=== PATIENT | female | born 1940 | race Caucasian/White ===

== ENCOUNTER → 2018-12-09 | Outpatient (CLI) | payer OTHER, BC ==
[~2018-12-09] VITALS: Ht 165.1 cm; Wt 70.3 kg
[~2018-12-09] MED LIST: AMLOD-VALSA-HC1 EACH PO; CLONAZEPAM 0.50.5 M1 PO; CYMBALTA30 MG PO; DEXILANT60 MG PO; LIPITOR10 MG PO; MOBIC15 MG PO; NEURONTIN 400400 M1 PO; REMERON15 MG PO
--- NOTE | ~2018-12-09 | P ---
[facility] [place] [address] PROCEDURE REPORT Name: JULIÁN BEATTY Room #: REG [facility]#: [id number] Admission: 12/09/18 ������������������ Attend Phys: Jose Francisco Bauer MD Discharge: ������������������ Date of : 42 Report #: [id number] THIS REPORT FOR: //name// CC: Jose Francisco Driver MD DATE OF SERVICE: 12/09/2018 OUTPATIENT COLONOSCOPY: BRIEF HISTORY: The patient is a 78-year-old woman who has a family history of colon cancer as her mother had colorectal cancer in her 60s and her father had colorectal cancer in his 80s. She also has a personal history of colon polyps. PREOPERATIVE DIAGNOSIS: Family history of colon cancer and personal history of colon polyps. POSTOPERATIVE DIAGNOSES: 1. Diminutive ascending colon polyps x 2. 2. Mild diverticulosis coli. 3. Small internal hemorrhoids. MEDICATIONS: Deep sedation with propofol per anesthesia. SPECIMEN: Diminutive ascending colon polyps x 2. ESTIMATED BLOOD LOSS: 3 mL. PROCEDURE: Colonoscopy to cecum and terminal ileum with biopsy. FINDINGS: Prior to propofol sedation, procedure of colonoscopy discussed with the patient as well as potential risks and its complications. She indicates she understands and desires to proceed. DESCRIPTION OF PROCEDURE: With the patient in left lateral decubitus position, digital examination was completed, which revealed no abnormalities. Subsequently, the Olympus video colonoscope was introduced in the rectum, advanced under direct vision to the cecum. Done with minimal difficulty. The cecum was identified by the ileocecal valve and the appendiceal orifice. I was able to visualize the distal segment of terminal ileum, which was inspected and noted to be unremarkable. At that point, the scope was slowly withdrawn and careful circumferential views obtained. Upon slow withdrawal of the scope, the prep was good. The mucosa was within normal limits, normal vascular pattern, normal light reflex. In the proximal ascending colon, 2 diminutive polyps were seen and removed by biopsy. The scope was further withdrawn and no additional [facility] [address] [address] PROCEDURE REPORT Name: JULIÁN BEATTY Room #: REG [facility].#: [id number] Admission: 12/09/18 ������������������ Attend Phys: Jose Francisco Bauer MD Discharge: ������������������ Date of : 42 Report #: [id number] neoplastic lesions were seen on this examination. The mucosa throughout the remainder of the colon was within normal limits, normal vascular pattern, normal light reflex. A few scattered diverticula were seen in the proximal colon. There was noted to be mild diverticular disease of the sigmoid colon without endoscopic evidence of diverticulitis. The scope was withdrawn in the rectum and upon retroflexion, small hemorrhoids were seen. Scope was withdrawn. The patient tolerated the procedure well. CONDITION OF THE PATIENT UPON DISCHARGE: Following procedure, the patient was drowsy, aroused, conversant and will be discharged home when fully ambulatory. INSTRUCTIONS TO THE PATIENT AND FAMILY AT THE TIME OF DISCHARGE: Two diminutive polyps identified and removed as described above. We will follow up the path of the polyps. However, given her personal history and family history, I suggest she return in 3 years for high risk screening colonoscopy. Last colonoscopy was 3 years ago in [place]. Withdrawal time from the cecum was 10 minutes and 5 seconds. ��������������������������������������������� ���������������������������������������� By: ��������������������������������������������� 0904 0032 Jose Francisco Bauer MD /nt
--- NOTE | ~2018-12-09 | P ---
[facility] [place] [address] PROCEDURE REPORT Name: JACIJULIÁN Mayer Room #: REG [facility]#: [id number] Admission: 12/09/18 ������������������ Attend Phys: Jose Francisco Bauer MD Discharge: ������������������ Date of : 42 Report #: [id number] THIS REPORT FOR: //name// CC: Jose Francisco Driver MD DATE OF SERVICE: 12/09/2018 BRIEF HISTORY: The patient is a 78-year-old woman who recently relocated from [place]. 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 However, she notes that at one point, she was told she had Flores's and at another point, she was told she did not have Flores esophagus. Reflux symptoms are controlled with Dexilant 60 mg daily. PREOPERATIVE DIAGNOSES: Questionable history of Flores esophagus and longstanding reflux disease. POSTOPERATIVE DIAGNOSES: 1. Moderate diffuse gastritis with erosive changes. 2. Normal appearing GE junction and squamocolumnar junction. MEDICATIONS: Deep sedation with propofol per anesthesia. SPECIMEN: Biopsies of gastritis. ESTIMATED BLOOD LOSS: 3 mL. PROCEDURE: EGD with biopsy. FINDINGS: Prior to propofol sedation, the procedure of upper endoscopy was discussed with the patient as well as potential risks and its complications. She indicates she understands and desires to proceed. DESCRIPTION OF PROCEDURE: With the patient in left lateral decubitus position, the Olympus video endoscope was inserted in the cervical esophagus under direct vision without difficulty. Examination of this organ to its entire length revealed normal esophageal mucosa down to the squamocolumnar junction. Squamocolumnar junction was inspected with both white light and narrow band imaging. The squamocolumnar junction was right at the top of the gastric folds along its entire circumference. I did not see significant irregularity. I did not see evidence of gastric type mucosa in the tubular lumen of the esophagus. There was no endoscopic evidence of Flores esophagus. A significant hiatus hernia was not seen. Scope was advanced in the stomach, was examined on end view as well as retroflexed views. There was diffuse gastritis with patchy erythema. There were also erosions in the antrum of the stomach and also [facility] [address] [place] [address] PROCEDURE REPORT Name: JULIÁN BEATTY Room #: REG [facility].#: [id number] Admission: 12/09/18 ������������������ Attend Phys: Jose Francisco Bauer MD Discharge: ������������������ Date of : 42 Report #: [id number] erosions in the body and fundus of the stomach. No ulcers were seen. It is noted, she does use nonsteroidal. Upon retroflexion, no mass lesions were seen. Biopsies were obtained to evaluate for H. pylori. The pylorus, duodenal bulb, and postbulbar duodenal sweep were inspected and noted to be unremarkable. At that point, the scope was slowly withdrawn and careful circumferential views confirmed the above findings. The patient tolerated the procedure well. CONDITION OF THE PATIENT UPON DISCHARGE: Following the procedure, the patient drowsy and prepared for colonoscopy. INSTRUCTIONS TO THE PATIENT AND FAMILY AT THE TIME OF DISCHARGE: The patient has longstanding history of reflux disease. She reports it is well controlled with Dexilant. If she does well, consider stepping down her Dexilant therapy to a lower dose of PPI. At this point, I do not see the need for continued routine upper endoscopy. She will follow up with Dr. Mack. If she has reflux problem, she is to return to see me in followup in the office. We will proceed with colonoscopy at this time. ��������������������������������������������� ���������������������������������������� By: ��������������������������������������������� 0838 11 Jose Francisco Bauer MD /kendra
--- NOTE | 2018-12-12 17:07 | PATH ---
[facility] [place] [address] [address] PATHOLOGY RPT PROCEDURE Name: JULIÁN SAGASTUME Room #: REG [facility].#: [id number] ������������������ Admission: 12/09/18 ������������������ Date of : 42 Discharge: Report #: [id number] Path Case #: [id number] [facility] Accession Number: [id number] . 01 Material submitted: . PART A: GASTRITIS R/O H PYLORI PART B: POLYP PROXIMAL ASCENDING COLON X2 . 01 Clinical history: . 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 02 Diagnosis: A. Gastric mucosa, gastritis rule out H. pylori, endoscopic biopsy: - Mild chronic active gastritis with features of reactive gastropathy. - Negative for intestinal metaplasia or atrophy. - Negative for Helicobacter pylori (properly controlled immunohistochemical stain performed). . B. Polyp x2, proximal ascending colon polyp, endoscopic biopsy: - One fragment showing tubular adenoma without high-grade dysplasia. - Second fragments showing hyperplastic polyp without dysplasia. . (IUV:measuring clerk; 12/12/2018) MBR/12/12/2018 . 02 Electronically signed: . Priyanka Antonio MD, Pathologist NPI- [id number] . 01 Gross description: . A. Received in formalin labeled "Julián Sagastume, BX gastritis, rule out H. pylori," are 7 segments of hall soft tissue measuring 1.5 x 1.0 x 0.2 cm in aggregate dimensions and ranging from 0.3 to 0.5 cm in maximum dimension. The specimen is submitted entirely in cassette A1. . B. Received in formalin labeled "Julián Sagastume, polyp proximal ascending colon x2," are 2 segments of hall soft tissue measuring 0.6 x 0.3 x 0.2 cm in aggregate dimensions and measuring 0.3 cm each in maximum dimension. The specimen is submitted entirely in cassette B1. (TSD; 12/09/2018) TOB/TOB . 02 Pathologist provided ICD-10: K29.50, K31.7, D12.2, K63.5 [place] [address] PATHOLOGY RPT PROCEDURE Name: JULIÁN SAGASTUME S Room #: REG [facility] Elieser#: [id number] ������������������ Admission: 12/09/18 ������������������ Date of : 42 Discharge: Report #: [id number] Path Case #: [id number] . 02 CPT . [id number], [id number], [id number] Specimen Comment: A courtesy copy of this report has been sent to Specimen Comment: [phone], . Specimen Comment: Report sent to and Performed at: [address], [place] [id number] MD Alexander Conway MD Phone: [phone] Performed at: [address] [id number] MD Priyanka Antonio MD Phone: [phone]
== END ==
LOC: GI 06:38
DX: Z12.11 Encounter for screening for malignant neoplasm of colon (principal); Z86.010 Personal history of colon polyps; Z80.0 Family history of malignant neoplasm of digestive organs; K63.5 Polyp of colon; D12.2 Benign neoplasm of ascending colon; K57.30 Diverticulosis of large intestine without perforation or abscess without bleeding; K64.8 Other hemorrhoids; K29.50 Unspecified chronic gastritis without bleeding; K31.9 Disease of stomach and duodenum, unspecified; F32.9 Major depressive disorder, single episode, unspecified; F41.9 Anxiety disorder, unspecified; F17.210 Nicotine dependence, cigarettes, uncomplicated; I10 Essential (primary) hypertension; E78.5 Hyperlipidemia, unspecified; Z85.828 Personal history of other malignant neoplasm of skin; Z87.01 Personal history of pneumonia (recurrent); Z88.8 Allergy status to other drugs, medicaments and biological substances; Z79.899 Other long term (current) drug therapy; Z98.890 Other specified postprocedural states
CPT/HCPCS: 62110; 62900